=== PATIENT | female | born 1980 | race Caucasian/White ===

== ENCOUNTER 2020-07-25 13:14 | Emergency (ER) | payer OTHER, SELFPAY ==
[2020-07-25 13:22] VITALS: BP 117/77; PULSE 78; RESP 16; TEMP 37.3; O2SAT 100
--- NOTE | 2020-07-25 13:56 | ED.EAR ---
HPI - Ear Problem General Chief complaint: Ear Stated complaint: earache Time Seen by Provider: 07/25/20 13:56 Source: patient and RN notes reviewed Mode of arrival: ambulatory Limitations: no limitations History of Present Illness HPI Narrative: 40-year-old female presents with complaints of left otalgia, decrease hearing, and pressure for the past 4 days. Esperanza reports increase LT ear symptoms with drainage over the past 24 hours. Ibuprofen last today at 07:00 without relief. History of ear infection. Denies itching. Denies swimming or getting water into ear. Denies URI symptoms, No high fevers or chills. Denies injury to the ear. No nasal drainage and congestion. Denies nausea, vomiting, tinnitus, and syncopal episodes. LMP unknown due to IUD in place. The patient reports she have not been diagnosed with COVID-19. The patient reports she received 2 [employer] COVID-19 vaccines in May 2020. The patient reports she is not waiting for the results of a COVID-19 lab test. The patient reports she do not have chills weakness or fatigue. The patient reports she do not have a new or worsening cough or shortness of breath. Denies chest pain. The patient reports she do not have any sore throat, loss of taste or smell, nausea, vomiting, abdominal pain, and diarrhea. Tolerating po intake well. Denies recent traveling. Denies concerns for COVID-19 or exposures been home with limited outdoor exposure except for essential household needs, work, and return home. At this time, patient is not suspected of having COVID-19. Some parts of this dictation were generated by voice recognition software and may contain typographical and/or grammatical inaccuracies. Related Data Home Medications Medication Instructions Recorded Confirmed bupropion HCl mg PO 07/25/20 Allergies Allergy/AdvReac Type Severity Reaction Status Date / Time No Known Allergies Allergy Unverified 04/01/14 13:02 Review of Systems Review of Systems: Narrative: CONSTITUTIONAL: Denies fever, chills, sweats. EYES: Denies visual changes, redness, discharge. ENT: Denies rhinorrhea, congestion, sore throat. Complains of LT otalgia, drainage, decrease hearing, and fullness. CARDIOVASCULAR: Denies chest pain, palpitations, edema. RESPIRATORY: Denies dyspnea, wheezing, cough. GASTROINTESTINAL: Denies abdominal pain, nausea, vomiting, diarrhea. SKIN: Denies rash or itching. MUSCULOSKELETAL: Denies acute back pain, joint pain, or myalgia. NEUROLOGIC: Denies numbness or focal weakness. PSYCHIATRIC: Denies anxiety or depression. All systems reviewed & are unremarkable except as noted in HPI and below PMFSH Past Medical History Medical History (Updated 07/26/20 @ 00:00 by Marisa Tariq) Depression Ear infection Surgical History Surgical History (Updated 07/25/20 @ 15:25 by WON Cordero) History of tympanostomy X2 Family History Family History Father Family history of diabetes mellitus in first degree relative Diabetes mellitus Mother Family history of hypercholesterolemia Hypertension Grandparent Family history of malignant neoplasm of breast Social History Social History (Updated 07/25/20 @ 15:24 by WON Cordero) Smoking status: Former smoker Tobacco type: cigarettes Second hand tobacco smoke exposure: No Smoking end date: 04/21/94 Alcohol intake: never Substance use: never Living arrangements: with family Occupation/Education: occupation Gender identity (if verbalized by the patient): Female Sexual Orientation (if Verbalized by the Patient): Straight or Heterosexual Comments At time of signature, I have reviewed and agree with nursing past medical, surgical, social, and family history. Please see nursing chart for further information. There is relevant patient's history pertinent to the presenting complaint, no relevant family his
== END 2020-07-25 14:30 | disposition home or self-care (01) ==
PROVIDERS: Emergency Provider Nurse Practitioner Family
DX: H61.22 Impacted cerumen, left ear (principal); H60.502 Unspecified acute noninfective otitis externa, left ear; Z87.891 Personal history of nicotine dependence; F32.9 Major depressive disorder, single episode, unspecified
CPT/HCPCS: 69209; 99213; A9270; G0463

== ENCOUNTER 2020-09-16 10:21 | Outpatient (CLI) | payer OTHER, SELFPAY ==
--- NOTE | ~2020-09-16 | MM_ITS ---
EXAMINATION: MM screening [facility] BI w shannan HISTORY: Screening TECHNIQUE: Craniocaudal and mediolateral oblique 3-D tomosynthesis images were obtained and synthetic 2-D images were generated. CAD analysis was submitted and interpreted. COMPARISON: No prior studies for comparison. BREAST PARENCHYMAL COMPOSITION: The breasts are extremely dense, which lowers the sensitivity of mamm ography FINDINGS: There are asymmetries centered in the upper outer quadrant of the left breast. There are no suspicious masses, calcifications or architectural distortion in the right breast to suggest maligna ncy. IMPRESSION: 1. Left breast asymmetries. 2. Additional mammographic views and possible breast ultrasound are recommended. BI-RADS Category 0: Incomplete: Needs additional imaging evaluation. Reviewed, dictated and finalized at location A. IMPRESSION: 1. Left breast asymmetries. 2. Additional mammographic views and possible breast ultrasound are recommended . BI-RADS Category 0: Incomplete: Needs additional imaging evaluation.
== END 2020-09-16 10:22 | disposition home or self-care (01) ==
LOC: ANHIMG 10:23
PROVIDERS: PCP Physician Assistant; Visit Provider Obstetrics & Gynecology
DX: Z12.31 Encounter for screening mammogram for malignant neoplasm of breast (principal); R92.8 Other abnormal and inconclusive findings on diagnostic imaging of breast
CPT/HCPCS: 77063; 77067

== ENCOUNTER 2020-10-16 13:51 | Outpatient (CLI) | payer OTHER, SELFPAY ==
--- NOTE | ~2020-10-16 | MMUS_ITS ---
EXAMINATION: MM diagnostic mammo unilat LT, US breast LT complete HISTORY: Follow-up left breast asymmetries TECHNIQUE: Additional 3-D tomosynthesis images of the left breast were performed and synthetic 2-D im ages were generated. CAD analysis was submitted and interpreted. High resolution complete left breast ultrasound was performed. COMPARISON: 09/16/2020 BREAST PARENCHYMAL COMPOSITION: The breasts are extremely dense, which lowers the sensitivity of mamm ography FINDINGS: MAMMOGRAPHIC FINDINGS: There is a mass in the upper outer quadrant of the left breast 2 cm there are no suspicious calcifica tions or architectural distortion. ULTRASOUND: Complete left breast ultrasound: At 1:00, 5 cm from the nipple, there is a 2.1 cm cyst corresponding to the mammographic abnormality. At 1:00, 5 cm from the nipple, there is a 9 mm cyst. IMPRESSION: 1. No evidence for malignancy in the left breast. Benign findings. 2. Routine yearly screening mammogram and regular clinical breast examination are recommended. BI-RADS Category 2: Benign finding(s). Reviewed, dictated and finalized at location A. IMPRESSION: 1. No evidence for malignancy in the left breast. Benign findings. 2. Routine yearly screening mammogram and regular clinical breast examination a re recommended. BI-RADS Category 2: Benign finding(s).
== END 2020-10-16 13:52 | disposition home or self-care (01) ==
LOC: ANHIMG 13:55
PROVIDERS: PCP Physician Assistant; Visit Provider Obstetrics & Gynecology
DX: R92.8 Other abnormal and inconclusive findings on diagnostic imaging of breast (principal)
CPT/HCPCS: 76641; 77065

== ENCOUNTER 2023-04-20 13:15 | Emergency (ER) | payer OTHER, SELFPAY ==
[2023-04-20 15:06] VITALS: BP 128/76; PULSE 86; RESP 16; TEMP 36.3; O2SAT 100
--- NOTE | 2023-04-20 15:53 | ED.GENADULT ---
HPI - General Adult General Chief complaint: Urogenital-Female Stated complaint: Female Urogenital Source: patient Mode of arrival: ambulatory Limitations: no limitations History of Present Illness HPI narrative: Patient presents for evaluation of urinary symptoms since yesterday. Symptoms include urgency, dysuria, and a fall or to the urine. She denies any fever, chills, nausea, vomiting, low back pain, abdominal pain. She has a history of urinary tract infections and this feels similar. No vaginal bleeding or discharge. She had urine dipsticks at home and noted nitrites when she checked today. Related Data Home Medications Medication Instructions Recorded Confirmed cholecalciferol (vitamin D3) 50 50 mcg PO DAILY 10/30/20 04/20/23 mcg (2,000 unit) capsule Allergies Allergy/AdvReac Type Severity Reaction Status Date / Time No Known Allergies Allergy Verified 04/20/23 15:07 Review of Systems Review of Systems: CONSTITUTIONAL: Denies fever, chills, or sweats. EYES: Denies visual changes, redness, or discharge. ENT: Denies rhinorrhea, congestion, sore throat, or otalgia. CARDIOVASCULAR: Denies chest pain, palpitations, or edema. RESPIRATORY: Denies cough or dyspnea. GASTROINTESTINAL: Denies abdominal pain, nausea, vomiting, or diarrhea. GENITOURINARY: reports urinary urgency, dysuria, and foul-smelling urine SKIN: Denies rash or itching. MUSCULOSKELETAL: Denies back pain, joint pain, or myalgia. NEUROLOGIC: Denies headache, numbness, dizziness, or weakness. PSYCHIATRIC: Denies anxiety or depression. [facility] Past Medical History Medical History Depression Ear infection Surgical History Surgical History History of tympanostomy X2 Family History Family History Father Family history of diabetes mellitus in first degree relative Diabetes mellitus Mother Family history of hypercholesterolemia Hypertension Grandparent Family history of malignant neoplasm of breast Social History Social History Smoking status: Former smoker Tobacco type: cigarettes Second hand tobacco smoke exposure: No Smoking end date: 04/21/94 Alcohol intake: never Substance use: never Lack of Transportation: No Lack of Food: Never True Current Housing: I Have Housing Concerned About Future Housing: No Difficulty Paying Gas/Electric Bills: No Difficulty Paying for Meds: No Currently Unemployed: No Education: Bachelor's Degree Difficulty w/ Childcare or Family Care: No Living arrangements: with family Occupation/Education: occupation Gender identity (if verbalized by the patient): Female Sexual Orientation (if Verbalized by the Patient): Straight or Heterosexual Exam Narrative: GENERAL: Well-appearing, well-nourished, and in no acute distress. HEAD: Normocephalic, atraumatic. EYES: PERRLA and EOMI. ENT: Nares clear, no rhinorrhea or epistaxis. Mucous membranes moist. Oropharynx without tonsillar hypertrophy exudate or other lesions. Bilateral TMs pearly vasquez nonbulging NECK: Supple. No adenopathy or masses. No carotid bruits or JVD CHEST: Clear to auscultation. No respiratory distress. No wheezes rales or rhonchi HEART: Regular rate and rhythm. No murmur heard. Normal peripheral pulses. ABDOMEN: Soft, nontender, nondistended, normal active bowel sounds. EXTREMITIES: Normal range of motion. No edema SKIN: Warm, dry, no rash. NEURO: No focal deficits. Alert and oriented x3. PSYCH: Normal mood and affect. Course Course Emergency Course: This is a 43-year-old female who presented for evaluation of urinary symptoms. She has evidence of UTI today. Will treat with Macrobid. She gets vaginal candidiasis with oral antibiotics so will g
== END 2023-04-20 15:57 | disposition home or self-care (01) ==
PROVIDERS: Emergency Provider Nurse Practitioner; PCP Family Medicine
DX: N39.0 Urinary tract infection, site not specified (principal); Z87.891 Personal history of nicotine dependence
CPT/HCPCS: 81003; 87086; 99213; G0463

== ENCOUNTER 2024-07-16 09:04 | Outpatient (CLI) | payer OTHER, SELFPAY ==
--- NOTE | ~2024-07-16 | MM_ITS ---
EXAMINATION: MM screening [facility] BI w shannan HISTORY: Screening TECHNIQUE: Craniocaudal and mediolateral oblique 3-D tomosynthesis images were obtained and synthetic 2-D images were generated. CAD analysis was submitted and interpreted. COMPARISON: 10/16/2020 and dating back to 09/17/2019 BREAST PARENCHYMAL COMPOSITION: The breasts are extremely dense, which lowers the sensitivity of mamm ography. FINDINGS: Redemonstration of the left upper outer quadrant breast asymmetry, consistent with a simple cyst on ultrasound. Stable parenchymal pattern without suspicious microcalcifications, architectural distortion, discrete masses or significant asymmetry. IMPRESSION: 1. No mammographic evidence of malignancy. 2. Recommend routine screening mammography in one year. BI-RADS Category 2: Benign finding(s). Reviewed, dictated and finalized at location A.
--- OUTSIDE RECORDS SUMMARY | 2024-07-16 09:29 | XMS_ITS | Referral Summary ---
Author Organization [facility] Address [address] [place] [address] Care Team Providers Care Cloth Bleaching Range Back Tender Name Role Phone Lenard Dior MD Primary Care Provider [phone] Pasha Hastings MD Unavailable Suzanna Felder DPT Unavailab le Allergies No known active allergies Medications * This document contains information received from the source organization and may not represent a complete record from that organization. buPROPion XL (WELLBUTRIN XL) 300 mg 24 hr tablet 8 Active citalopram (CeleXA) 20 mg tablet 8 Active levonorgestrel (LILETTA) 19.5 mcg/24 hour (4 years) IUDIndications:Pre gnancy Contraception once. Active cholecalciferol (VITAMIN D-3) 2,000 unit capsule 2,000 Units daily. Active polyethylene glycol 3350 (MIRALAX ORAL) Take by mouth daily. Active propranoloL (INDERAL) 10 mg tablet TK 1 T PO BEFORE SPEAKING 0 Active Active Problems Problem Noted Date Diagnosed Date Routine eye exam 07/01/2019 Assessment & Plan (07/02/2021 3:16 PM CDT): Normal ocular health today. Myopia of both eyes 07/01/2019 Assessment & Plan (07/02/2021 3:15 PM CDT): Updated SRx given today - dist only and computer. Discussed PAL. 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 Gender Identity Not on file Sexual Orientation Not on file Last Filed Vital Signs Vital Sign Reading Time Taken Comments Blood Pressure 111/72 12/23/2017 2:02 PM CDT Pulse 81 12/23/2017 2:02 PM CDT Temperature 36.9 C (98.4 F) 12/23/2017 2:02 PM CDT Respiratory Rate - - Oxygen Saturation 99% 01/31/2017 10:53 AM CDT Inhaled Oxygen Concentration - - Weight 48.7 kg (107 lb 6.4 oz) 12/23/2017 2:02 P M CDT Height 162.6 cm (5' 4 ) 12/23/2017 2:02 PM CDT Body Mass Index 18.44 12/23/2017 2:02 PM CDT Plan of Treatment [place] [id number] [facility] EM[employer] [facility] HMO/PPO Address: [address] [address] [place] [phone] [place] [address] [facility] CHOICE PLUS [facility] H[employer]/PPO Address: [address] [address] [place] [address] [facility] [employer] [facility] H[employer]/PPO Address: [address] [place] [phone] Care Teams Cloth Bleaching Range Back Tender Relationship Specialty Start Date End Date Lenard Dior MD [address] [place] [address] PCP - General 08/12/16 Pasha Hastings MD [address] [place] [address] Consulting Physician Obstetrics and Gynecology 10/20/17 Suzanna Felder, KATERINAT [address] [facility] [address] [place] [address] Physical Therapist Physical Therapy 10/21/17
--- OUTSIDE RECORDS SUMMARY | 2024-07-16 09:29 | XMS_ITS | Clinical Summary ---
Author Organization [facility] Address [address] [place] [address] Care Team Providers Care County Demonstrator Name Role Phone Lenard Dior MD Primary Care Provider [phone] Pasha Hastings MD Unavailable [phone] Suzanna Felder DPT Unavailab le Allergies No [...] Immunization Administration Dates Next Due COVID-19 mRNA (Izzui) 0.3 m L (30 mcg) vaccine (12 years and up) 02/17/2024 Influenza, Trivalent, Cell C ulture-based MDCK, Preservative Free, Antibiotic Free, Intramuscular 02/17/2024 Surgical History Surgery Date Site/Laterality Comments [place] TONSILLECTOMY PRIMARY/SEC ONDARY <AGE 12 Tonsillectomy - (Added by TW Conv) GALLBLADDER SURGERY Gallbladder Surgery - (Added by TW Conv) Medical History Medical History Date Comments Personal history of other me ntal and behavioral disorders History of depression - (Add ed by TW Conv) Personal history of other di seases of the nervous system and sense organs History of myopia - (Added by TW Conv) Personal history of other di seases of the digestive system History of chronic constipat ion - (Added by TW Conv) Personal history of other di seases of urinary system History of urinary urgency - (Added by TW Conv) Personal history of other sp ecified conditions History of urinary frequency - (Added by TW Conv) Family History Medical History Relation Name Comments Diabetes Father Family history of diabetes mellitus - (Added by TW Conv) Lung cancer Maternal Grandfather Hyperlipidemia Mother Family histor y of hyperlipidemia - (Added by TW Conv) Relation Name Status Comments Father Maternal Grandfather Mother Social History Tobacco Use Types Packs/Day Years Used Date Smoking Tobacco: Former Smokeless Tobacco: Never Comments Unknown Sex and Gender Information Value Date Recorded Sex Assigned at Not on file 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 Gender Identity Not on file Sexual Orientation Not on file Obstetrics History Last Filed Vital Signs Vital Sign Reading [...] 12/23/2017 2:02 PM CDT Plan of Treatment Health Maintenance Due Date Last Done Comments Breast Cancer Screening-Mammogram 1979 Cervical Cancer Screening 1979 Colon Cancer Screening-Colonoscopy 1979 Depression Screening 1979 Hepatitis C Screening 1979 DTaP/Tdap/Td Vaccine (1 - Tdap) 1990 Hepatitis B Screening 1997 Regular Well Visit/Exam 18-64 1997 Covid-19 Vaccine Completed 02/17/2024, 01/2021, 05/24/2020, Additional history exists Influenza Vaccine Completed 02/17/2024, 02/04/2020 HPV Vaccines Aged Out No longer eligi ble based on patient's age to complete this topic Pneumococcal vaccine <65 Aged Out No longer eligible based on patient's age to complete this topic Insurance [facility] [employer] [facility] HMO/PPO Address: [facility] [address] [place] [address] [facility] CHOICE PLUS [facility] HMO/PPO Address: [address] [address] [place] [address] [place] [address] [facility] EM[employer]YEES [facility] HMO/PPO Address: [facility] [address] [place] [address] Care Teams County Demonstrator Relationship Specialty Start Date End Date Lenard Dior MD [address] [place] [address] PCP - General 08/12/16 Pasha Hastings MD [address] [place] [address] Consulting Physician Obstetrics and Gynecology 10/20/17 Suzanna Felder DPT [address] [place] [address] Physical Therapist Physical Therapy 10/21/17
== END 2024-07-16 09:05 | disposition home or self-care (01) ==
LOC: ANHIMG 09:05
PROVIDERS: PCP Family Medicine; Visit Provider Obstetrics & Gynecology
DX: Z12.31 Encounter for screening mammogram for malignant neoplasm of breast (principal)
CPT/HCPCS: 77063; 77067